=== PATIENT | female | born 1970 | race African-American/Black ===

== ENCOUNTER 2019-08-11 13:47 | Outpatient (CLI) | payer BC, SELFPAY ==
[2019-08-11 14:46] LABS: Basophils Absolute Auto 0.1 K/mm3 (0.0-0.1); Basophils Percent Auto 0.9 % (0.2-1.2); Eosinophils Absolute Auto 0.2 K/mm3 (0-0.3); Eosinophils Percent Auto 2.5 % (0-4.4); Hematocrit 33.5 % (37.0-47.0); Hemoglobin 9.4 g/dL (12.0-15.0); Immature Granulocyte Absolute 0.02 K/mm3 (0.00-0.031); Immature Granulocyte Percent A 0.3 % (0-0.5); Lymphocytes Percent Auto 23.8 % (18.3-44.2); Mean Corpuscular HGB Conc 28.1 g/dl (32-36); Mean Corpuscular Volume 71.4 fl (80-100); Mean Platelet Volume 11.1 fl (7.4-10.4); Monocytes Absolute Auto 0.6 K/mm3 (0.1-0.6); Monocytes Percent Auto 7.9 % (2.6-8.5); Neutrophils Absolute Auto 4.9 K/mm3 (1.3-6.7); Neutrophils Percent Auto 64.6 % (45.5-73.1); Platelet Count Result 428 k/mm3 (150-375); Red Blood Count 4.69 M/mm3 (4.2-5.4); Red Cell Distribution Width 19.1 % (11.5-14.5); White Blood Count 7.6 K/mm3 (4.5-10.0)
[2019-08-11 15:06] LABS: Microcytosis 2+ (NORMAL); Platelet Estimate Adequate (Adequate)
[2019-08-11 15:07] LABS: Hypochromasia 2+ (NORMAL); Polychromasia 1+ (NORMAL)
== END 2019-08-11 13:48 | disposition home or self-care (01) ==
PROVIDERS: PCP Registered Nurse; Visit Provider Registered Nurse
DX: D64.9 Anemia, unspecified (principal)
CPT/HCPCS: 36415; 85025

== ENCOUNTER 2021-06-27 07:14 | Outpatient (RCR) | payer BC, SELFPAY ==
[2021-06-27 09:44] VITALS: BP 138/94; PULSE 86; RESP 16; TEMP 36.6; O2SAT 99
[2021-06-27] MEDS: diphenhydrAMINE HCl CAP 25 MG CAPSULE PO (09:49)
[2021-06-27] MEDS: ACETAMINOPHEN 325 MG TABLET 650 MG PO (09:49)
[2021-06-27] MEDS: FAMOTIDINE 20 MG TABLET PO (09:49)
--- NOTE | 2021-06-27 10:25 | PC.NURSE ---
Unable to start IV, patient will receive injections.
--- NOTE | 2021-06-27 10:37 | PC.NURSE ---
Patient does not have a current home medication list.
[2021-06-27 11:12] VITALS: BP 136/92
== END 2021-06-27 17:00 ==
LOC: AMCINF 07:14
PROVIDERS: PCP Internal Medicine; Referring Provider Internal Medicine; Visit Provider Internal Medicine Hematology & Oncology
DX: U07.1 COVID-19 (principal); I10 Essential (primary) hypertension; N18.9 Chronic kidney disease, unspecified
CPT/HCPCS: A9270; M0243; Q0244

== ENCOUNTER 2022-07-26 09:52 | Emergency (ER) | payer BC, SELFPAY ==
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
[2022-07-26 09:55] VITALS: BP 155/111; PULSE 95; RESP 18; TEMP 36.6; O2SAT 100
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
[2022-07-26] MEDS: ACETAMINOPHEN 500 MG TABLET 1000 MG PO (11:21)
[2022-07-26] MEDS: KETOROLAC 30 MG/ML VIAL (*BKC) IM (11:22)
[2022-07-26 12:59] VITALS: BP 139/104; PULSE 88; RESP 18; O2SAT 98
== END 2022-07-26 13:00 | disposition home or self-care (01) ==
PROVIDERS: Emergency Provider Physician Assistant; PCP Internal Medicine
DX: E04.1 Nontoxic single thyroid nodule (principal); M54.2 Cervicalgia; M25.512 Pain in left shoulder; I10 Essential (primary) hypertension; K51.90 Ulcerative colitis, unspecified, without complications; Z87.891 Personal history of nicotine dependence; M47.812 Spondylosis without myelopathy or radiculopathy, cervical region
CPT/HCPCS: 72125; 73030; 96372; 99284; A9270; J1885

== ENCOUNTER 2024-08-25 15:04 | Outpatient (CLI) | payer BC, SELFPAY ==
[2024-08-25 16:00] LABS: Basophils Percent Auto 0.5 % (0.2-1.2); Eosinophils Absolute Auto 0.2 K/mm3 (0-0.3); Eosinophils Percent Auto 3.1 % (0-4.4); Hematocrit 45.8 % (37.0-47.0); Hemoglobin 14.4 g/dL (12.0-15.0); Immature Granulocyte Absolute 0.02 K/mm3 (0.00-0.031); Immature Granulocyte Percent A 0.3 % (0-0.5); Lymphocytes Absolute Auto 2.52 K/mm3 (0.9-3.2); Lymphocytes Percent Auto 34.2 % (18.3-44.2); Mean Corpuscular HGB Conc 31.4 g/dl (32-36); Mean Corpuscular Hemoglobin 29.5 pg (26-34); Mean Corpuscular Volume 93.9 fl (80-100); Mean Platelet Volume 11.5 fl (7.4-10.4); Monocytes Absolute Auto 0.6 K/mm3 (0.1-0.6); Monocytes Percent Auto 8.1 % (2.6-8.5); Neutrophils Percent Auto 53.8 % (45.5-73.1); Platelet Count Result 319 k/mm3 (150-375); Red Blood Count 4.88 M/mm3 (4.2-5.4); Red Cell Distribution Width 14.8 % (11.5-14.5); White Blood Count 7.4 K/mm3 (4.5-10.0)
[2024-08-25 16:47] LABS: Add Urine Microscopic? NO; Appearance Urine Clear (Clear); Bilirubin Urine Negative (Negative); Blood Urine Negative (Negative); Color Urine Yellow (Yellow); Glucose Urine UA Negative (Negative); Ketones Urine Trace mg/dL (Negative); Leukocyte Esterase Ur Negative LEU/UL (Negative); Nitrate Urine Negative (Negative); Protein Urine Negative (Negative); Specific Grav Ur 1.028 (1.001-1.035)
[2024-08-25 16:54] LABS: Alanine Aminotransferase 15 U/L (6-35); Albumin Level 4.6 g/dL (3.5-5.1); Alkaline Phosphatase 99 U/L (38-126); Anion Gap 13 mmol/L (4-12); Aspartate Amino Transferase 22 U/L (14-36); Blood Urea Nitrogen 19 mg/dL (7-17); Calcium 10.1 mg/dL (8.4-10.2); Carbon Dioxide 27 mmol/L (22-30); Chloride 100 mmol/L (98-107); Cholesterol 167 mg/dL (0-200); Estimated Glomerular Filt Rate 53; Glucose 87 mg/dL (65-110); HDL Direct 69 mg/dL; Potassium 4.2 mmol/L (3.4-5.0); Sodium 140 mmol/L (137-145); Triglycerides 138 mg/dL (<150); Uric Acid 6.3 mg/dL (2.5-7.5)
[2024-08-25 17:05] LABS: LDL Cholesterol Direct 63 mg/dL
[2024-08-26 00:40] LABS: Thyroid Stimulating Hormone Reflex 0.719 uIU/mL (0.465-4.68)
== END 2024-08-25 15:05 | disposition home or self-care (01) ==
PROVIDERS: PCP Internal Medicine; Visit Provider Registered Nurse
DX: R00.2 Palpitations (principal); E04.1 Nontoxic single thyroid nodule; I12.0 Hypertensive chronic kidney disease with stage 5 chronic kidney disease or end stage renal disease; N18.5 Chronic kidney disease, stage 5
CPT/HCPCS: 36415; 80053; 80061; 81003; 84443; 84550; 85025